=== PATIENT | female | born 1955 | race Caucasian/White ===

== ENCOUNTER 2016-11-09 22:51 | Emergency (ER) | payer MEDICAID ==
[2016-11-09 22:59] VITALS: BP 169/90; PULSE 70; RESP 14; TEMP 97.9; O2SAT 95
[2016-11-09] MEDS ORDERED: AZITHROMYCIN 250 MG TAB PO ONE (23:01)
[2016-11-09] MEDS ORDERED: ALBUTEROL INH PREPACK MDI TAKEHOME ONE (23:01)
--- NOTE | 2016-11-09 23:02 | UCPHY ---
H & P Time Seen by Provider: 11/09/16 23:00 Patient Type: Established HPI/ROS: This patient complains of 5 day history of coughing. Initially she just had nasal congestion and cold symptoms but over the past 24 hours her cough started to feel tight in her chest with harsh barking quality and some mild wheezing. She notes no exacerbating or alleviating factors but was anxious about going to sleep with her feeling of chest congestion sugar came in for evaluation. ROS: No high fevers or chills. No other constitutional symptoms. HEENT: She reports no sinus pain. No sore throat. No ear pain. Pulmonary: No respiratory distress. No pleuritic pain. No hemoptysis. Cardiovascular: No lightheadedness or chest pain. GI: No vomiting. 7 point ROS is otherwise negative. Smoking Status: Never smoked Physical Exam: Physical Exam Vital signs are normal. General: No acute distress HEENT: Nose: Clear discharge bilaterally. No sinus tenderness to percussion. Ears: External canals and tympanic membranes are clear with no erythema or abnormal findings bilaterally. Oropharynx: No erythema or exudates. No dysphonia. No drooling or stridor. Eyes: Pupils equal and react to light. Extraocular motions are intact. Neck: Supple with no meningismus. No lymphadenopathy Lungs: Faint expiratory wheeze. No rales or rhonchi. Cardiac: Regular rate and rhythm with no murmur gallop or rub. No leg edema or tenderness. Skin: No rash or pallor. Neuro: Alert with no focal deficits noted. Initial differential diagnosis: Viral bronchitis versus bacterial bronchitis, doubt pneumonia Constitutional: Initial Vital Signs Temperature (C) 36.6 C 11/09/16 22:58 Heart Rate 70 11/09/16 22:58 Respiratory Rate 14 11/09/16 22:58 Blood Pressure 169/90 H 11/09/16 22:58 O2 Sat (%) 95 11/09/16 22:58 O2 Delivery Mode Room Air Allergies/Adverse Reactions: No Known Allergies Allergy (Verified 11/09/16 22:58) Home Medications: Medication Instructions Recorded Ascorbic Acid [Vitamin C 500 mg 500 mg PO DAILY 11/17/13 (OTC)] Estradiol [Estradiol 1 MG (RX)] 1 mg PO DAILY 11/17/13 Multivitamins [Tab-A-Yazan] 1 each PO DAILY 11/17/13 [place]-3 Fatty Acids [Fish Oil 1000 1,000 mg PO DAILY 11/17/13 mg (OTC)] Doxycycline Hyclate [Vibramycin 100 mg PO BID #20 cap 10/30/15 100 MG (*)] Erythromycin 0.5% 1 justin RTEYE BID #1 opht.oint 10/30/15 Azithromycin [Zithromax] 250 mg PO DAILY #6 tab 11/09/16 MDM/Departure - MDM Medications Given: Discontinued Medications Albuterol Sulfate (Proventil Inh Prepack) 1 mdi TAKEHOME EDNOW ONE Stop: 11/09/16 23:02 Last Admin: 11/09/16 23:04 Dose: 1 mdi Azithromycin (Zithromax) 500 mg PO EDNOW ONE PRN Reason: Protocol Stop: 11/09/16 23:02 Last Admin: 11/09/16 23:05 Dose: 500 mg ED Course/Re-evaluation: Patient is given a 1st dose of Zithromax and discharged with an albuterol inhaler with spacer. We counseled regarding the use of these medications and regarding bronchitis. She does not have significant clinical evidence to suggest lower respiratory infection, sepsis or other concerning findings. - Depart Disposition: Home, Routine, Self-Care Clinical Impression: Acute bronchitis Qualifiers: Bronchitis organism: unspecified organism Qualified Code(s): J20.9 - Acute bronchitis, unspecified Condition: Good Instructions: Albuterol (By breathing), Acute Bronchitis (ED) Additional Instructions: Diagnosis: Acute bronchitis Plan: Humidifier Albuterol inhaler with spacer for cough, wheeze or shortness of breath Zithromax antibiotic Ibuprofen Tylenol for comfort as needed Return for any significant worsening despite the treatment plan. Prescriptions: Azithromycin [Zithromax] 250 mg PO DAILY #6 tab Referrals: NONE *PRIMARY CARE P,. [Primary Care Provider] - As per Instructions - PQRS PQRS Measurement: NA
== END 2016-11-09 23:17 | disposition home or self-care (01) ==
LOC: CED 22:51
DX: J20.9 Acute bronchitis, unspecified (principal)
CPT/HCPCS: 99214-PO; G0463-PO

== ENCOUNTER 2017-01-25 11:24 | Day surgery (SDC) | payer MEDICAID ==
[2017-01-25] MEDS ORDERED: LIDOCAINE 1% 2 ML INJ ONE (11:41)
[2017-01-25] MEDS ORDERED: LR 1,000 ML IV ONE (11:57)
[2017-01-25] MEDS ORDERED: LIDOCAINE 1% 2 ML INJ ID PRN (11:57)
--- NOTE | 2017-01-25 12:31 | PDGENHP ---
History & Physical Chief Complaint: H/o colon polyps History of Present Illness: Pt with 2 colon polyps removed 2014 due for f/u. Pertinent Past, Social, Family History: Pt with fam h/o colon polyps in her father Relevant Physical Exam: Afeb VSS. cv rr s1s2 nl. Air jazmin normal mp 2. Chest cta. Abd + bs soft anon render Cardiorespiratory Assessment: WNL. plan for colon with MAC with SSA polyp and poor prep last exam may be prolonged procedure
[2017-01-25] MEDS ORDERED: MIDAZOLAM 2 MG/2 ML VIAL ONE (12:38)
[2017-01-25] MEDS ORDERED: PROPOFOL 200 MG/20 ML VIAL ONE (12:38)
--- NOTE | 2017-01-25 12:42 | PDANEPAE ---
ANE Past Medical History - Cardiovascular History Hx Hypertension: No Hx Arrhythmias: No Hx Chest Pain: No Hx Coronary Artery / Peripheral Vascular Disease: No Hx CHF / Valvular Disease: No Hx Palpitations: No - Pulmonary History Hx COPD: No Hx Asthma/Reactive Airway Disease: Yes Hx Recent Upper Respiratory Infection: No Hx Oxygen in Use at Home: No Hx Sleep Apnea: No Sleep Apnea Screening Result - Last Documented: Negative - Neurologic History Hx Cerebrovascular Accident: No Hx Seizures: No Hx Dementia: No - Endocrine History Hx Diabetes: No - Renal History Hx Renal Disorders: No - Liver History Hx Hepatic Disorders: No - Neurological & Psychiatric Hx Hx Neurological and Psychiatric Disorders: Yes Neurological / Psychiatric History Comment: "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 in PT now. - Cancer History Hx Cancer: No - Congenital Disorder History Hx Congenital Disorders: No - GI History Hx Gastrointestinal Disorders: No Gastrointestinal History Comment: hx of colon polyp - Chronic Pain History Chronic Pain: Yes - Surgical History Prior Surgeries: Lap dagoberto within past 5 yrs ANE Review of Systems - Exercise capacity METS (RN): 4 METS ANE Patient History - Allergies Allergies/Adverse Reactions: No Known Allergies Allergy (Verified 01/23/17 12:24) - Home Medications Home Medications: Ascorbic Acid [Vitamin C 500 mg (OTC)] 500 mg PO DAILY 11/17/13 [Last Taken Unknown] Estradiol [Estradiol 1 MG (RX)] 1 mg PO DAILY 11/17/13 [Last Taken Unknown] Multivitamins [Tab-A-Yazan] 1 each PO DAILY 11/17/13 [Last Taken Unknown] [place]-3 Fatty Acids [Fish Oil 1000 mg (OTC)] 1,000 mg PO DAILY 11/17/13 [Last Taken Unknown] - NPO status NPO Since - Liquids (Date): 01/25/17 NPO Since - Liquids (Time): 10:00 NPO Since - Solids (Date): 01/24/17 NPO Since - Solids (Time): 10:00 - Smoking Hx Smoking Status: Never smoked - Family Anes Hx Family Hx Anesthesia Complications: NONE ANE Labs/Vital Signs - Vital Signs Blood Pressure: 144/81 Heart Rate: 65 Respiratory Rate: 12 O2 Sat (%): 99 Height: 170.18 cm Weight: 69.4 kg ANE Physical Exam - Airway Neck exam: FROM Mallampati Score: Class 1 Mouth exam: normal dental/mouth exam - Pulmonary Pulmonary: no respiratory distress, no rales or rhonchi, clear to auscultation - Cardiovascular Cardiovascular: regular rate and rhythym, no murmur, rub, or gallop, systolic murmur - ASA Status ASA Status: II ANE Anesthesia Plan Anesthesia Plan: MAC
[2017-01-25] MEDS ORDERED: LIDOCAINE 2% 5 ML SDV ONE (12:56)
--- NOTE | 2017-01-25 13:09 | SUROPNOTE ---
[facility] Operative Report - Surgery Full note dictated 2 colon polyps Diverticulosis Await path high fiber diet repeat colon in 5 years
--- NOTE | 2017-01-25 13:41 | GPN ---
[f rep st] PROCEDURE NOTE DATE OF PROCEDURE: 01/25/2017 PROCEDURE PERFORMED: Colonoscopy with biopsy. INSTRUMENT USED: Adult colonoscope. ANESTHESIOLOGIST: Laura Memo. ANESTHESIA: Applied by the anesthesiologist. INDICATIONS: Patient is a 61-year-old with family history of colon polyps and personal history of p olyps with sessile serrated adenoma in the right side. Referred for surveillance colonoscopy for hi story of polyps. Prior to the procedure, exam performed including auscultation of the heart and ivana gs within normal limits. Patient's mental status appropriate. Procedure was explained including th e risks of bleeding, perforation, risk of missing polyps, and she gave informed consent. FINDINGS: Patient was placed in left lower decubitus position. Perianal and rectal exam performed, was normal. Medicines given by the anesthesiologist. The scope was then advanced by direct visual ization to the area of the cecum which was somewhat difficult due to looping requiring pressure. Ce cum was then reached identified by the presence of the ileocecal valve, appendiceal orifice __ from this area, scope is withdrawn with inspection of colonic mucosa. The prep was adequate for examination. No residual right-sided polyp was seen. There was a 5 mm polyp seen in the sigmoid co kingsley removed by cold biopsy. A second 5 mm polyp was seen in the rectum also removed by cold biopsy with minimal bleeding. Retroflexion was normal. Diverticulosis was noted in the sigmoid and descen ding colon. The scope was removed from the patient who tolerated the procedure well. Time of the p rocedure was approximately 20 minutes. ASSESSMENT: 1. Sigmoid colon polyp. 2. Rectal polyp. 3. Left-sided diverticulosis. PLAN: Await biopsy results. Recommend high-fiber diet indefinitely. Recommend repeat colonoscopy in 5 years. Thank for this consult. /[id number]/MODL
--- NOTE | 2017-01-25 13:56 | POSTANESTH ---
Post Anesthetic Evaluation Cardiovascular Status: Normal, Stable Respiratory Status: Normal, Stable Level of Consciousness/Mental Status: Mildly Sleepy, Arousable Pain Control: Adequate, Prn Tx Ordered Nausea/Vomiting Control: Adequate, Prn Tx Ordered Complications Possibly Related to Anesthesia: None Noted
[2017-01-25 14:38] VITALS: PULSE 59; TEMP 98.1
[2017-01-25 15:07] VITALS: BP 139/86; RESP 16; O2SAT 91
== END 2017-01-25 15:11 | disposition home or self-care (01) ==
LOC: FSGY 11:24
PROVIDERS: ATTEND Internal Medicine Gastroenterology
PROC: 0DBN8ZX Excision of Sigmoid Colon, Via Natural or Artificial Opening Endoscopic, Diagnostic (ICD-10-PCS; principal; 2017-01-25 12:30)
PROC: 0DBP8ZX Excision of Rectum, Via Natural or Artificial Opening Endoscopic, Diagnostic (ICD-10-PCS; principal; 2017-01-25 12:30)
DX: Z12.11 Encounter for screening for malignant neoplasm of colon (principal); K62.1 Rectal polyp; K57.32 Diverticulitis of large intestine without perforation or abscess without bleeding; Z86.010 Personal history of colon polyps; Z83.71 Family history of colonic polyps
CPT/HCPCS: J2250; J2704